=== PATIENT | female | born 1955 | race Caucasian/White ===

== ENCOUNTER 2019-02-22 13:16 | Outpatient (REF) | payer MEDICARE, SELFPAY ==
[2019-02-22 18:29] LABS: HCT 46.4 % (36.0-46.0); HGB 15.5 g/dL (12.0-15.5); Mean Corp. HGB Concentration 33.4 g/dL (32.0-36.0); Mean Corpuscular Hemoglobin 31.7 pg (27.0-33.0); Mean Corpuscular Volume 94.9 fL (80-95); Mean Platelet Volume 10.1 fL (8.0-11.0); Platelet Count 264 x1000/uL (130-400); RBC 4.89 m/cumm (4.00-5.20); RBC Distribution Width 12.8 % (11.7-14.6)
[2019-02-22 19:16] LABS: ALT 34 U/L (14-59); AST 18 U/L (15-37); Albumin 3.5 g/dL (3.4-5.0); Alkaline Phosphatase 94 U/L (46-116); Anion Gap 11.8 mmol/L (3-11); BUN 10 mg/dL (7-18); Bilirubin, Total 0.4 mg/dL (0.2-1.0); CO2 26.2 mmol/L (21.0-32.0); CREATININE 0.95 mg/dL (0.55-1.02); Calcium 8.8 mg/dL (8.5-10.1); Chloride 104 mmol/L (98-107); Estimated GFR 58.85 (mL/min/1.73m2); Glucose 86 mg/dL (70-100); Potassium 4.7 mmol/L (3.5-5.1); Sodium 142 mmol/L (136-145); TSH (W/Ref FT4) 4.94 uIU/mL (0.36-3.74)
== END 2019-02-22 13:36 ==
LOC: NCHCN 13:16
PROVIDERS: PCP Nurse Practitioner Family; Visit Provider Nurse Practitioner Family
DX: R10.2 Pelvic and perineal pain (principal); Z86.39 Personal history of other endocrine, nutritional and metabolic disease; R07.89 Other chest pain
CPT/HCPCS: 80053; 85027; 84439; 84443

== ENCOUNTER 2019-03-08 18:02 | Outpatient (REF) | payer MEDICARE, SELFPAY ==
--- NOTE | 2019-03-08 15:00 | PAPFT_PTH ---
PATIENT: Odalis Dennison LOC: [facility]#:[id number] AGE/SX: 64/F ROOM: RE03/08/[address]: Gila Hodge : 1955 BED: DIS: 03/08/2019 SPEC #: [id number] RECD: 03/09/19 12:59 STATUS: RICKY MARTINEZ #: [id number] TRINA: 03/08/19 15:[address]: Gila Hodge DEPT: [facility] Cytology RECD BY: Katerina Grubbs ENTERED: 03/09/19 12:59 SP TYPE: PAPFT OTHR DR: Lanette Rader Tissues: 1 - CX/ENDOCX FOR PAP SMEARS Procedures: PAP THIN PREP/UVM Screening HPV DNA PROBE Comments: [id number]
== END 2019-03-08 18:22 ==
LOC: NCHCN 18:02
PROVIDERS: PCP Nurse Practitioner Family; Visit Provider Nurse Practitioner Family
DX: Z12.4 Encounter for screening for malignant neoplasm of cervix (principal); Z11.51 Encounter for screening for human papillomavirus (HPV)
CPT/HCPCS: 88142; 87624

== ENCOUNTER 2019-06-13 12:04 | Outpatient (CLI) | payer MEDICARE, SELFPAY ==
[2019-06-13 13:53] LABS: Ferritin 158 ng/mL (8-252)
== END 2019-06-13 12:24 ==
PROVIDERS: PCP Nurse Practitioner Family; Visit Provider Nurse Practitioner
DX: M25.50 Pain in unspecified joint (principal)
CPT/HCPCS: 36415; 82728

== ENCOUNTER 2019-07-21 00:44 | Outpatient (CLI) | payer MEDICARE, SELFPAY ==
--- NOTE | 2019-07-21 08:49 | DI.NM_ITS ---
APPROVED REPORT Exam: Exercise Treadmill Patient Location: Out-Patient Room/Bed: Stress Nurse: Radha Hooper RN BMI: 41.96 Baseline Rhythm: Sinus Bradycardia Indications: Patient reports feeling intermittent palpitations about 1 year ago which have increased in frequency over time. In April she states she had an ER admission where Atrial Fibrillation was noted. Patient testing today for further risk stratification. Note: her father of a heart attack at age 53. Medical History Medical History: GERD Cardiac Medications: Eliquis, Diltiazam, Losartan, Aspirin. Allergies: No known drug allergies Cardiac Risk Factors: FHX of CAD, HTN, Smoking Previous Cardiac Procedures: None Pretest Chest Pain Characteristics: None Exercise History: Physically active Physical Disabilities: None Lung Sounds: Clear to auscultation Heart Sounds: Regular Stress Test Details Test: Exercise stress testing was performed using a Damon protocol. Rest Isotope: Tc-99m Sestamibi. Dose: 12.3 Date: 07/21/2019 Injection Time: 0830 Stress Isotope: Tc-99m Sestamibi. Dose: 38.7 Date: 07/21/2019 Injection Time: 1000 HR Max Heart Rate (APMHR): 154 bpm Resting HR Supine: 52 bpm Target HR (85% APMHR): 130 bpm Resting HR Standin bpm Max HR Achieved: 182 bpm % of APMHR: 118 HR response to stress: Patient went into Atrial Fibrillation during exercise with elevated heart rate s. BP Resting BP Supine: 170/90 mmHg Resting BP Standin/90 mmHg Max BP: 196/98 mmHg BP response to stress: Blood pressure hypertensive at baseline. Normal blood pressure response to str ess. ECG Resting ECG: Sinus Bradycardia ST Change: Normal Ectopy: none Stress ECG: Patient converted to Atrial , Sinus Tachycardia ST Change: Normal Arrhythmia: The patient went into atrial fibrillation at approximately 3 minutes 35 seconds of exe rcise. Recovery ECG: Atrial Fibrillation Recovery ST Change: Downward sloping St Segment depression at 8 minutes 39 seconds of recovery in dari ds II and AVF, that returned to baseline at approximately 10 of recovery. Patient to ER: 1025 Reason Why: At 9 minutes 30 seconds of recovery patient's heart rhythm was atrial fibrillation with h eart rate sustained in the 140's. Ship Manager, Dr. Stubbs, was notified, he recommended patient go t he the ER to be converted. Patient was taken to the ER at 1025 via wheelchair with LNA. Sulema Pruett RN, RN gave report to Saurav Kimball RN and Flaca RIVER at 1026. Clinical Reason for Termination: Dyspnea Stress Symptoms: Palpitations and cough Exercise duration: 5 min11 sec Highest Stage Achieved: Stage 3: 3.4 mph at 14% grade. Exercise capacity: 4.05 METs Functional Capacity: Average Capacity Stress ECG Conclusion 1. Patient exercised for 5 minutes 11 seconds (4 METS). Exercise was stopped due to dyspnea. 2. The patient went into atrial fibrillation at approximately 3 minutes of exercise. This abnormal r hythm continued through recovery. 3. The patient was transferred to the emergency room where a cardioversion was performed. 4. There is no evidence of ischemia on the ECG portion of this exam. Protocol Used: Damon Protocol Stress Test Summary STAGE Time (mins) Speed (mph) Grade (%) HR BP SYMPTOMS METS Supine 52 170/90 Standing 61 172/90 1 3 1.7 10 113 184/90 4.6 2 6 2.5 12 7 3 9 3.4 14 10.2 4 12 4.2 16 12.9 5 15 5.0 18 17.2 1 min recovery 164 196/98 3 min recovery 154 182/98 6 min recovery 119 180/98 145 148/100 MPI Conclusion Last ejection fraction was 60%. There were no wall motion abnormalities. No evidence of ischemia on the imaging portion of this exam. This represents a normal perfusion imaging study. Radiologist Interpretation Radiologist Interpretation by: Jose Maria Bolton MD Interpretation Date/Time: 07/21/2019 16:13:31
== END 2019-07-21 01:04 ==
PROVIDERS: PCP Nurse Practitioner Family; Visit Provider Nurse Practitioner Family
DX: R00.2 Palpitations (principal); I47.9 Paroxysmal tachycardia, unspecified; I48.0 Paroxysmal atrial fibrillation; I10 Essential (primary) hypertension; K21.9 Gastro-esophageal reflux disease without esophagitis; Z82.49 Family history of ischemic heart disease and other diseases of the circulatory system
CPT/HCPCS: 78452; 93016; 93018; 93017

== ENCOUNTER 2019-07-21 10:23 | Emergency (ER) | payer MEDICARE, SELFPAY ==
[2019-07-21] VITALS (30 sets, daily range): BP systolic 104–151; BP diastolic 56–110; PULSE 47–150; RESP 12–26; TEMP 36.5–36.8; O2SAT 90–96
--- NOTE | 2019-07-21 10:34 | W.ED.GENAD ---
Discharge Plan Disposition Patient Disposition: HOME Condition: Good Discharge Details Chief Complaint: Palpitatns Clinical Impression: Atrial flutter, Atrial flutter with rapid ventricular response Primary Care Provider: Gila Hodge ED Provider: Anmol Meredith Home Meds and New Rx's Prescriptions: No Action Eliquis 5 mg Tablet 5 mg PO BID RF: 0 diltiazem HCl 120 mg Capsule,Extended Release 24hr 120 mg PO DAILY RF: 0 losartan 100 mg Tablet 120 mg PO DAILY RF: 0 omeprazole 20 mg Tablet,Delayed Release (Dr/Ec) 20 mg PO DAILY RF: 0 aspirin [Aspir-81] 81 mg Tablet,Delayed Release (Dr/Ec) 162 mg PO DAILY RF: 0 omega-3 fatty acids [Fish Oil Concentrate] 1,000 mg Capsule 1,000 mg PO DAILY RF: 0 cyanocobalamin (vitamin B-12) [Vitamin B-12] 1,000 mcg Tablet Extended Release PO DAILY RF: 0 ropinirole [Requip XL] 2 mg Tablet Extended Release 24 Hr 1 mg PO DAILY RF: 0 Discharge Instructions Instructions: Atrial Flutter (ED) Additional Instructions: At this time your heart rate has notably improved. Please take your daily diltiazem at 3 PM this afternoon. Please continue taking your Eliquis as directed starting with your evening dose tonight. We will get a cardiology follow-up appointment for you. Please do not miss this. They will contact you for this appointment. If you notice any worsening of your symptoms, or any new symptoms such as vomiting, diarrhea, fever, chills, shortness of breath, chest pain, numbness, weakness, or fainting , please return immediately to the emergency department for reevaluation. Please follow up with your primary care provider as soon as possible for reassessment and reevaluation. As always, it was a pleasure participating in your medical care today. Referrals: Christian Stubbs MD [MD CONSULTING PHYSICIAN] - Gila Hodge [Primary Care Provider] - Medical Decision Making 64-year-old female with a past medical history of A. fib on diltiazem 120 mg daily, Eliquis, who presents for palpitations after stress test. While undergoing a nuclear stress test she developed A. fib with RVR with a heart rate of 148. She has no chest pain or other complaints whatsoever. She states that this is happened before. She has not yet taken her Cardizem. Currently her blood pressure is stable, we did attempt to Valsalva techniques utilizing the modified Valsalva technique. Unfortunately neither of these were successful. I do feel that patient truly needs her diltiazem. We will give 20 mg IV Cardizem, we have reached out to the [facility] complaint coordinator Dr Stubbs, he does agree with a trial of diltiazem, and if this fails then we can cardiovert electrically since we know the exact time that her symptoms started. 12:49 PM Laboratory work-up is returned, no electrolyte abnormalities, troponin normal, EKG normal, proBNP normal, TSH is elevated which is at baseline for the patient. Free T4 0.89. And this is baseline. She continues to demonstrate no chest pain, chest tightness, shortness of breath, arm neck or shoulder pain. She denies any other complaints. She continues to states that she feels great and has had no pain or chest distress whatsoever. Symptoms are inconsistent with ACS. The patient has remained in a normal heart rate since administration of the diltiazem. Repeat EKG does show evidence of rate controlled atrial flutter. Case was rediscussed with , and with her rate improvement with diltiazem there is no indication for electrical cardioversion. He agrees with the plan and recommends continuation of her home diltiazem, and close follow-up on an outpatient basis with cardiology. Patient will be discharged home at this time. Discussed red flags for which to return. Will schedule cardiology appointment. I have extensively reviewed the treatment plan and discharge instructions with the patient. I have addressed all patient concerns at this time. The patient was made aware of what symptoms to monitor for that would warrant a return to the emergency department. Discussed the plan with the patient, they demonstrate verbal understanding and agreement with our assessment and plan at this time. EKG 10: 28 Rate 147, there are components that do seem to show some P waves, particularly in lead II however he also appears to be notably less consistent P waves in the lateral leads. There does appear to be some rhythm irregularity, especially with her history of A. fib this is concerning for atrial fibrillation with a rapid ventricular response no evidence of STEMI. HPI General Date/Time Provider Initiated Documentation: 07/21/19 10:23. HPI Narrative: This is a 64-year-old female with a past medical history of A. fib on Eliquis, 120 mg of diltiazem, who presents today for evaluation of palpitations. The patient was undergoing a nuclear stress test today when she went into A. fib with RVR. Sites were elevated heart rate in the 140s to 150s she remained stable from a blood pressure standpoint. She was sent down to the ER by cardiology for further management. Currently aside for the feeling of palpitations the patient denies any other complaint or pain. She denies chest pain, chest tightness, shortness of breath, nausea vomiting or diarrhea. She denies any pleuritic chest pain or history of PE. She has been taking her Eliquis every day as directed, she has not taken today's dose, which is about 30 minutes delayed at this time. She has no other complaints at this time. No other modifying factors. She states that she has had episodes of A. fib before in the past but it always resolves on its own after 2 hours. Related Data Home Medications Medication Instructions Recorded Confirmed apixaban [Eliquis] 5 mg PO BID 07/21/19 07/21/19 aspirin [Aspir-81] 162 mg PO DAILY 07/21/19 07/21/19 cyanocobalamin (vitamin B-12) mcg PO DAILY 07/21/19 [Vitamin B-12] diltiazem HCl 120 mg PO DAILY 07/21/19 07/21/19 losartan 120 mg PO DAILY 07/21/19 07/21/19 omega-3 fatty acids [Fish Oil 1,000 mg PO DAILY 07/21/19 07/21/19 Concentrate] omeprazole 20 mg PO DAILY 07/21/19 07/21/19 ropinirole [Requip XL] 1 mg PO DAILY 07/21/19 07/21/19 Allergies Allergy/AdvReac Type Severity Reaction Status Date / Time No Known Allergies Allergy Unverified 07/21/19 10:37 Review of Systems All systems reviewed & are unremarkable except as noted in HPI and below PFSH Social History Smoking/Tobacco Use Status: Current every day Tobacco Type: cigarettes Alcohol Intake: current Alcohol Intake frequency: a few times a week Drug use: Occasionally Substance use type: marijuana Details: cutting back on cigarettes - less than 1ppd from 2.5ppd weekly marijuana Do you feel safe at home: Yes Do you feel safe in your relationship?: Yes Exam Narrative Exam Narrative: 1.Const: Well-nourished, Well-developed, appearing stated age 2.Eyes: PERRL, no conjunctival injection, and symmetrical lids. 3.ENT: Atraumatic external nose and ears. Moist MM. Neck: Symmetric, trachea midline, No thyromegaly. 4.CVS: +S1/S2, No murmurs or gallops. Peripheral pulses 2+ and equal in all extremities. Brisk capillary refill in all extremities. 5.RESP: Unlabored respiratory effort. Clear to auscultation bilaterally. No wheezes rales or rhonchi 6.GI: Soft, Nontender/Nondistended, No hepatosplenomegaly. No guarding or rebound. 7.MSK: Normocephalic/Atraumatic, Extremities w/o deformity or ttp No cyanosis or clubbing, Normal movement of all extremities, no calf tenderness, no pitting edema. 8.Skin: Warm, Dry. No rashes or lesions. 9.Neuro: gold prospector II-XII grossly intact. Sensation grossly intact, no focal neurologic deficits. 10.Psych: (AAO) x3. Appropriate mood and affect
[2019-07-21] MEDS: Normal Saline 500 ML IV (10:40)
[2019-07-21] MEDS: dilTIAZem 25 MG/5 ML VIAL 20 MG IVP (10:45)
[2019-07-21] MEDS: Apixaban 5 MG TAB PO (11:27)
[2019-07-21 11:44] LABS: Abs Immature Grans 0.02 k/cumm (0.0-0.09); Absolute Basophil Count 0.02 k/cumm (0.0-0.2); Absolute Eosinophil Count 0.36 k/cumm (0.0-0.7); Absolute Lymphocyte Count 1.72 k/cumm (1.2-3.4); Absolute Monocyte Count 0.56 k/cumm (0.11-0.7); Absolute Neutrophil Count 4.82 k/cumm (1.2-6.7); Basophils % 0.3; Eosinophils % 4.8; HCT 41.6 % (36.0-46.0); HGB 13.9 g/dL (12.0-15.5); Immature Grans % 0.3 %; Lymphocytes % 22.9; Mean Corp. HGB Concentration 33.4 g/dL (32.0-36.0); Mean Corpuscular Hemoglobin 31.4 pg (27.0-33.0); Mean Corpuscular Volume 93.9 fL (80-95); Mean Platelet Volume 9.6 fL (8.0-11.0); Monocytes % 7.5; Neutrophils % 64.2; Platelet Count 202 x1000/uL (130-400); RBC 4.43 m/cumm (4.00-5.20); RBC Distribution Width 12.7 % (11.7-14.6)
[2019-07-21 12:03] LABS: PTT Activated 24.7 sec (21.0-31.4); Prothrombin Time 10.1 sec (9.3-11.0)
[2019-07-21 12:07] LABS: ALT 40 U/L (14-59); AST 18 U/L (15-37); Albumin 3.2 g/dL (3.4-5.0); Alkaline Phosphatase 91 U/L (46-116); Anion Gap 7.7 mmol/L (3-11); BUN 16 mg/dL (7-18); Bilirubin, Total 0.5 mg/dL (0.2-1.0); CO2 28.3 mmol/L (21.0-32.0); CREATININE 0.77 mg/dL (0.55-1.02); Calcium 8.5 mg/dL (8.5-10.1); Chloride 107 mmol/L (98-107); Glucose 95 mg/dL (74-106); NT-proBNP 468 pg/mL (<300); Potassium 4.2 mmol/L (3.5-5.1); Sodium 143 mmol/L (136-145); TSH (W/Ref FT4) 5.26 uIU/mL (0.36-3.74); Total Protein 6.5 g/dL (6.4-8.2); Troponin I < 0.05 ng/Ml (<0.06)
[2019-07-21 12:24] LABS: FREE T4 0.89 ng/dL (0.76-1.46)
== END 2019-07-21 13:06 | disposition home or self-care (01) ==
PROVIDERS: Emergency Provider Student in an Organized Health Care Education/Training Program; PCP Nurse Practitioner Family
DX: I48.91 Unspecified atrial fibrillation (principal); I48.92 Unspecified atrial flutter
CPT/HCPCS: 80053; 93005; 96361; 96374; 99285; 99291; 83880; 84439; 84443; 84484; 85025; 85610; 85730; 93010; 99284

== ENCOUNTER 2019-08-02 01:28 | Outpatient (CLI) | payer MEDICARE, SELFPAY ==
--- NOTE | 2019-08-02 10:30 | DI.US_ITS ---
APPROVED REPORT EXAM: Comprehensive 2D, Doppler, and color-flow Echocardiogram Patient Location: Out-Patient Rn Primary Care: Flakita Almageur RDCS (AE) Rhythm: Bradycardia Indications: tachycardia, paroxysmal, i47.9, paroxysmal atrial fibrillation i48.0. Conclusion Left Ventricle : The left ventricle is normal size. The left ventricular systolic function is normal. The left ventricular ejection fraction is within the normal range. Mild Asymmetric septal thickening . There is normal LV segmental wall motion. The left ventricular diastolic function is normal. LVEF i s estimated to be 70%. Right Ventricle : Right ventricle is mildly dilated. The right ventricular systolic function appears normal. Atria : Left atrium is mildly dilated. Right atrium is mildly dilated. Aortic Valve : Aortic valve is probably trileaflet. There is no aortic valvular stenosis or regurgita tion. Mitral Valve : Mitral valve leaflets are mildly thickened. Mild mitral regurgitation. No evidence of mitral valve stenosis. Tricuspid Valve : Moderate tricuspid regurgitation. Tricuspid valve is not well visualized. Great Vessels : The aortic root is normal in size. The IVC is dilated in size, but appears to collaps e >50% with inspiration. Estimated RVSP is 34-42 mmHg. There is no prior echocardiogram available for comparison. Wall motion Left Ventricle The left ventricle is normal size. The left ventricular systolic function is normal. The left ventric ular ejection fraction is within the normal range. Mild Asymmetric septal thickening. There is normal LV segmental wall motion. The left ventricular diastolic function is normal. LVEF is estimated to be 70%. Right Ventricle Right ventricle is mildly dilated. The right ventricular systolic function appears normal. Atria Left atrium is mildly dilated. Right atrium is mildly dilated. Aortic Valve Aortic valve is probably trileaflet. There is no aortic valvular stenosis. No aortic regurgitation is present. Mitral Valve Mitral valve leaflets are mildly thickened. No evidence of mitral valve stenosis. Mild mitral regurgi tation. Tricuspid Valve Tricuspid valve is not well visualized. Moderate tricuspid regurgitation. Pulmonic Valve Pulmonic valve is not well visualized. Great Vessels The aortic root is normal in size. The ascending aorta is dilated (4.2cm). The IVC is dilated in size , but appears to collapse >50% with inspiration. Estimated RVSP is 34-42 mmHg. Pericardium Prominent anterior epicardial fat pad is present. 2D Dimensions IVSd 1.20 cm F: 0.6-1.0 LV EDV A2C 72.1 mL PWd 0.80 cm F: 0.6 - 1.0 LV EDV A4C 72.4 mL LVDd 5.00 cm F: 3.8 - 5.2 LA Volume Index Biplane 42.0 mL/m2 LVDs 2.85 cm F: 2.2 - 3.5 LA Area A4C 25.28 cm2 Aortic Root 3.15 cm F: 2.7 - 3.3 LA Area A2C 25.75 cm2 RVID Base (AP4) 4.50 cm (M/F) 2.5-4.1 EF AP4 71.3 % RA Area A4C 21.92 cm2 EF AP2 70.7 % LVOT 2.10 cm (M/F) 1.5-2.5 EF BP 73.0 % Ascending Aorta 4.26 cm F: 2.3 - 3.1 IVC 2.16 cm LVEF (Teich) 73.7 % TAPSE 2.58 cm (M/F) <1.7 LVEF (Rizo's) 73.01 % F: 54 - 74 LV Volume 53.96 mL F: 46 - 106 LV Volume Index 24.52 mL/m2 F: 29 - 61 FS 42.85 % LV Diastology MV E' medial 0.057 (>0.07 m/s) E/A Ratio 1.4 LV E/e MED 12.10 (<14) PV S/D Ratio 1.66 MV E' lateral 0.086 (>0.1 m/s) A-A Duration 113.27 msec LV E/e LAT 8.05 (<14) TR Peak Velocity 2.93 m/s Pulm Vein s 0.69 m/s Pulm Vein d 0.42 m/s Pulm Vein a 0.30 m/s LA vol/ BSA A2C s A-L 41.0 mL/m2 LA vol/ BSA A4C s A-L 41.3 mL/m2 Aortic Valve LVOT Area 3.57 cm2 AoV Area Vmax 2.68 cm2 LVOT Vmax 1.30 m/s AoV Area/ BSA (Vmax) 1.22 cm2/m2 LVOT Mean Jeffery. 0.94 m/s MARQUISE Mean Jeffery. 2.81 cm2 LVOT Peak Gr. 6.8 mmHg MARQUISE Mean Jeffery. Index 1.28 cm2/m2 LVOT Mean Gr. 3.9 mmHg LVOT VTI 0.315 m AoV Vmax 1.74 (0.5-1.3 m/s) AoV Mean Jeffery. 1.19 m/s AoV Peak Grad 12.0 mmHg LVOT SV 112.51 mL AoV Mean Grad 6.3 (<5 mmHg) AoV VTI 0.418 (0.18-0.25 m) AoV Area VTI 2.69 (2.5-4.5 cm2) AoV Area/ BSA (VTI) 1.22 cm/m2 Mitral Valve MV E Max Jeffery. 0.69 (0.4-1.3 m/s) MVA VTI 6.38 (4.0-6.0 cm2) MV A Velocity 0.50 (0.4-1.3 m/s) PISA MR 1.66 cm2 E/A Ratio 1.37 ERO A 0.10 cm2 MV Decel. Time 231 (160-240 msec) MV Regurg Volume 20.04 mL MV PHT 67 msec MV RF 15.12 % MVA PHT 3.25 cm2 PISA Radius 0.51 cm PV Peak Velocity 0.99 (0.5-1.5 m/s) RVOT Peak Gr. 2.69 mmHg RVOT Peak Jeffery. 0.82 m/s RVOT Mean Gr. 1.60 mmHg RVOT VTI 0.167 m Tricuspid Valve TR P. Gradient 34.4 mmHg TV Regurg Vmax 2.93 m/s RAP Estimate 8.00 mmHg RVSP 42.4 mmHg
== END 2019-08-02 01:48 ==
PROVIDERS: PCP Nurse Practitioner Family; Visit Provider Family Medicine
DX: I48.0 Paroxysmal atrial fibrillation (principal); I47.9 Paroxysmal tachycardia, unspecified; I10 Essential (primary) hypertension; I51.7 Cardiomegaly; I25.10 Atherosclerotic heart disease of native coronary artery without angina pectoris; I48.92 Unspecified atrial flutter; Z79.01 Long term (current) use of anticoagulants; Z79.899 Other long term (current) drug therapy
CPT/HCPCS: 93306; 99204; 99215

== ENCOUNTER 2019-08-02 08:36 | Outpatient (CLI) | payer MEDICARE, OTHER, SELFPAY | END 2019-08-02 08:56 | PROVIDERS: PCP Nurse Practitioner Family; Visit Provider Internal Medicine Cardiovascular Disease | DX: I48.0 Paroxysmal atrial fibrillation (principal); I10 Essential (primary) hypertension | CPT/HCPCS: 93005; 93010 ==

== ENCOUNTER 2019-08-10 02:40 | Outpatient (CLI) | payer MEDICARE, SELFPAY | END 2019-08-10 03:00 | PROVIDERS: PCP Nurse Practitioner Family; Visit Provider Internal Medicine Cardiovascular Disease | DX: R00.2 Palpitations (principal); I48.0 Paroxysmal atrial fibrillation; I49.1 Atrial premature depolarization | CPT/HCPCS: 93225 ==

== ENCOUNTER 2019-08-12 16:02 | Outpatient (CLI) | payer MEDICARE, SELFPAY ==
--- NOTE | 2019-08-15 09:08 | W.HOLTRPT ---
Date of service: 08/15/19 Time of Service: 09:08 Holter Monitor Report Holter Monitor Note: The patient was monitored for 48 hours and 12 minutes. Predominant rhythm was sinus rhythm. There was paroxysmal atrial flutter/fibrillation which lasted for 14 hours and 2 minutes Average heart rate when in atrial fibrillation was 100 to110 bpm. Average heart rate when in sinus was 60 There were very rare ventricular ectopic beats. There are moderately frequent atrial premature beats Sinus bradycardia was present, minimum heart rate 42. Longest pause was 2 seconds
== END 2019-08-12 16:22 ==
PROVIDERS: PCP Nurse Practitioner Family; Visit Provider Internal Medicine Cardiovascular Disease
DX: I48.0 Paroxysmal atrial fibrillation (principal); I49.1 Atrial premature depolarization; R00.2 Palpitations
CPT/HCPCS: 93226

== ENCOUNTER 2019-08-15 09:08 | Outpatient (CLI) | payer MEDICARE, SELFPAY | END 2019-08-15 09:28 | PROVIDERS: PCP Nurse Practitioner Family; Referring Provider Nurse Practitioner Family; Visit Provider Internal Medicine Cardiovascular Disease | DX: R00.2 Palpitations (principal); I48.0 Paroxysmal atrial fibrillation; I49.1 Atrial premature depolarization | CPT/HCPCS: 93227 ==

== ENCOUNTER → 2020-02-03 10:43 | Outpatient (BNVA) | payer MEDICARE, SELFPAY | PROVIDERS: PCP Nurse Practitioner Family; Referring Provider Nurse Practitioner Family; Visit Provider Internal Medicine Cardiovascular Disease | DX: I48.0 Paroxysmal atrial fibrillation (principal); Z79.01 Long term (current) use of anticoagulants; I10 Essential (primary) hypertension | CPT/HCPCS: 99214 ==

== ENCOUNTER 2020-08-08 12:24 | Outpatient (REF) | payer OTHER, SELFPAY ==
[2020-08-08 20:36] LABS: Anion Gap 9.8 mmol/L (3-11); BUN 16 mg/dL (7-18); CO2 27.2 mmol/L (21.0-32.0); CREATININE 0.9 mg/dL (0.55-1.02); Calculated LDL 143 mg/dL (<100); Chloride 103 mmol/L (98-107); Cholesterol 222 mg/dL (<200); Glucose 98 mg/dL (74-106); HDL Cholesterol 61 mg/dL (40-60); Potassium 4.5 mmol/L (3.5-5.1); Sodium 140 mmol/L (136-145); TSH (W/Ref FT4) 4.57 uIU/mL (0.36-3.74); Triglyceride 94 mg/dL (<150)
[2020-08-08 21:04] LABS: FREE T4 0.89 ng/dL (0.76-1.46)
== END 2020-08-08 12:25 | disposition home or self-care (01) ==
LOC: NCHCN 12:24
PROVIDERS: PCP Nurse Practitioner Family; Visit Provider Nurse Practitioner Family
DX: I10 Essential (primary) hypertension (principal); E78.5 Hyperlipidemia, unspecified; Z86.39 Personal history of other endocrine, nutritional and metabolic disease
CPT/HCPCS: 80048; 80061; 84439; 84443

== ENCOUNTER → 2020-08-17 10:45 | Outpatient (BNVA) | payer OTHER, SELFPAY | PROVIDERS: PCP Nurse Practitioner Family; Referring Provider Nurse Practitioner Family; Visit Provider Internal Medicine Cardiovascular Disease | DX: I48.0 Paroxysmal atrial fibrillation (principal); I10 Essential (primary) hypertension | CPT/HCPCS: 99214; 99213 ==

== ENCOUNTER 2020-10-26 03:54 | Outpatient (CLI) | payer OTHER, SELFPAY ==
--- NOTE | 2020-10-26 11:23 | DI.MAMMO_ITS ---
Exam(s) MAMMO SCREENING EXAM: MAMMO SCREENING CLINICAL HISTORY: SCREENING, PREVENTIVE HEALTH CARE,Z00.00 TECHNIQUE: Bilateral full field digital CC and MLO mammographic images were obtained with 3D tomosyn thesis and utilizing computer aided detection (CAD). COMPARISON: Available for comparison. FINDINGS: Masses/Architectural Distortion: None seen. Microcalcifications: No suspicious pleomorphic-type are seen. Skin Thickening/Nipple Retraction: None. IMPRESSION: 1. No significant interval change with no specific features of malignancy noted. 2. Unless there is more urgent need, screening mammography is recommended, as per [place] [employer] guidelines. BI-RADS Category 1 - Negative Breast Density - Category A - Almost entirely fatty Breast density category C or D implies that the patient has dense breast tissue. Dense breast tissue is very common and is not abnormal but dense breast tissue can make it harder to find cancer on a ma mmogram. Also, dense breast tissue may increase their breast cancer risk. This information about the result of the mammogram report was provided to the patient to raise their awareness. Use this report when you speak with the patient about their risks for breast cancer, which includes their family hist ory. At that time, you may recommend for more screening tests (Ultrasound or MRI) as they might be us eful based on their risk. A negative radiographic report should not delay biopsy if a dominant or clinically suspicious mass is present. Up to ten percent of cancers are not identified on mammography. A negative report may reinforce clinical impression. Adenosis and dense breasts may obscure an underlying neoplasm. False positive reports average 6 to 10%. Patient will receive a letter notifying them of these results.
== END 2020-10-26 04:14 ==
PROVIDERS: PCP Nurse Practitioner Family; Visit Provider Nurse Practitioner Family
DX: Z12.31 Encounter for screening mammogram for malignant neoplasm of breast (principal)
CPT/HCPCS: 77063; 77067

== ENCOUNTER 2020-10-30 09:52 | Outpatient (CLI) | payer OTHER, SELFPAY ==
--- NOTE | 2020-10-30 09:30 | DI.RAD_ITS ---
Exam(s) XR KNEE RT 3V AP,LAT,FRANCISCA EXAM: XR KNEE RT 3V AP,LAT,FRANCISCA CLINICAL HISTORY: right knee pain. TECHNIQUE: 2D digital imaging was performed. COMPARISON: No exams were available for comparison FINDINGS: There are moderate degenerative changes in the right knee with joint space narrowing and periarticula r spurring most marked in the medial femoral tibial joint. The bones are intact and normally mineral ized. The soft tissues are unremarkable. IMPRESSION: Moderate degenerative changes of the right knee. DATA REPOSITORY: RADIATION DOSE DELIVERED:
== END 2020-10-30 09:53 | disposition home or self-care (01) ==
LOC: DIORS 09:52
PROVIDERS: PCP Nurse Practitioner Family; Referring Provider Nurse Practitioner Family; Visit Provider Student in an Organized Health Care Education/Training Program
DX: M17.11 Unilateral primary osteoarthritis, right knee (principal); M25.561 Pain in right knee
CPT/HCPCS: 73562; 99203; 99213

== ENCOUNTER → 2021-09-09 11:46 | Outpatient (BNVA) | payer OTHER, SELFPAY | PROVIDERS: PCP Nurse Practitioner Family; Visit Provider Internal Medicine Cardiovascular Disease | DX: I48.0 Paroxysmal atrial fibrillation (principal); I10 Essential (primary) hypertension | CPT/HCPCS: 99213 ==

== ENCOUNTER 2021-09-24 17:43 | Outpatient (REF) | payer OTHER, SELFPAY ==
[2021-09-24 17:19] LABS: Anion Gap 10.8 mmol/L (3-11); BUN 14 mg/dL (7-18); CO2 27.2 mmol/L (21.0-32.0); Calcium 8.7 mg/dL (8.5-10.1); Chloride 102 mmol/L (98-107); Estimated GFR 55.14 (mL/min/1.73m2); Glucose 100 mg/dL (74-106); Potassium 4.1 mmol/L (3.5-5.1); Sodium 140 mmol/L (136-145); TSH (W/Ref FT4) 3.87 uIU/mL (0.36-3.74)
[2021-09-24 17:42] LABS: FREE T4 0.91 ng/dL (0.76-1.46)
== END 2021-09-24 17:44 | disposition home or self-care (01) ==
LOC: NCHCN 17:43
PROVIDERS: PCP Nurse Practitioner Family; Visit Provider Nurse Practitioner Family
DX: Z86.39 Personal history of other endocrine, nutritional and metabolic disease (principal)
CPT/HCPCS: 80048; 84439; 84443

== ENCOUNTER 2022-09-08 09:01 | Outpatient (CLI) | payer SELFPAY | END 2022-09-08 09:02 | disposition home or self-care (01) | LOC: DI.CARD 09:01 | PROVIDERS: PCP Nurse Practitioner Family; Visit Provider Internal Medicine Cardiovascular Disease | CPT/HCPCS: 93010 ==

== ENCOUNTER 2023-01-21 11:57 | Outpatient (REF) | payer MEDICARE, SELFPAY ==
[2023-01-21 14:55] LABS: Abs Immature Grans 0.04 10^3/uL (0.0-0.06); Absolute Basophil Count 0.05 10^3/uL (0.0-0.2); Absolute Eosinophil Count 0.36 10^3/uL (0.0-0.7); Absolute Lymphocyte Count 2.44 10^3/uL (1.2-3.4); Absolute Monocyte Count 0.66 10^3/uL (0.1-0.8); Absolute Neutrophil Count 4.69 10^3/uL (1.2-6.7); Basophils % 0.6; Eosinophils % 4.4; HCT 42.5 % (36.0-46.0); HGB 14.1 g/dL (11.2-15.7); Immature Grans % 0.5; Lymphocytes % 29.6; MCH 31.5 pg (27.0-33.0); MCHC 33.2 % (32.0-36.0); MCV 95 fL (80-95); MPV 10.3 fL (8.0-11.0); Neutrophils % 56.9; Platelet Count 238 10^3/uL (130-400); RBC 4.48 10^6/uL (3.93-5.22); RDW 12.4 % (11.7-14.6); RDW-SD 42.9 fL; WBC 8.24 10^3/uL (4.4-10.8)
[2023-01-21 15:49] LABS: Iron 118 ug/dL (50-170); Total Iron Binding Capacity 352 ug/dL (250-450); Transferrin Sat 34 % (15-50)
[2023-01-21 16:05] LABS: ALT 67 U/L (14-59); AST 36 U/L (15-37); Albumin 3.5 g/dL (3.4-5.0); Alkaline Phosphatase 92 U/L (46-116); Anion Gap 7.3 mmol/L (3-11); BUN 18 mg/dL (7-18); Bilirubin, Total 0.6 mg/dL (0.2-1.0); CO2 29.7 mmol/L (21.0-32.0); CREATININE 1.2 mg/dL (0.55-1.02); Calculated LDL 159 mg/dL (<100); Chloride 105 mmol/L (98-107); Cholesterol 238 mg/dL (<200); Ferritin 171 ng/mL (8-252); Glucose 110 mg/dL (74-106); HDL Cholesterol 60 mg/dL (40-60); Potassium 4.2 mmol/L (3.5-5.1); Sodium 142 mmol/L (136-145); Total Protein 6.9 g/dL (6.4-8.2); Triglyceride 99 mg/dL (<150)
== END 2023-01-21 11:58 | disposition home or self-care (01) ==
LOC: NCHCN 11:57
PROVIDERS: PCP Nurse Practitioner Family; Visit Provider Nurse Practitioner Family
DX: I10 Essential (primary) hypertension (principal); R25.2 Cramp and spasm; R53.83 Other fatigue
CPT/HCPCS: 80053; 80061; 82728; 83540; 83550; 83735; 85025

== ENCOUNTER 2023-01-30 08:41 | Outpatient (CLI) | payer MEDICARE, SELFPAY ==
--- NOTE | 2023-01-30 08:45 | RT.EKG_ITS ---
APPROVED REPORT Exam: Resting ECG Reason for Exam: 1 year follow up Patient Location: O HR:50 bpm ECG Measurements Heart Rate 50 AXIS ND 158 P -30 QRSd 97 QRS 5 QT 418 T 44 QTc 382 Conclusion Sinus rhythm...normal P axis, V-rate 50- 99 Low voltage, precordial leads...precordial leads <1.0mV LVH with secondary repolarization abnormality...multi-LVH criteria, abnrm ST-T
== END 2023-01-30 08:42 | disposition home or self-care (01) ==
LOC: DI.CARD 08:51
PROVIDERS: PCP Nurse Practitioner Family; Referring Provider Nurse Practitioner Family; Visit Provider Internal Medicine Cardiovascular Disease
DX: I10 Essential (primary) hypertension (principal); I48.0 Paroxysmal atrial fibrillation
CPT/HCPCS: 93010

== ENCOUNTER → 2023-01-30 08:41 | Outpatient (BNVA) | payer MEDICARE, SELFPAY | PROVIDERS: PCP Nurse Practitioner Family; Referring Provider Nurse Practitioner Family; Visit Provider Internal Medicine Cardiovascular Disease | DX: I48.0 Paroxysmal atrial fibrillation (principal); I10 Essential (primary) hypertension | CPT/HCPCS: 93005; 99213 ==

== ENCOUNTER 2023-01-30 09:36 | Outpatient (CLI) | payer MEDICARE, SELFPAY | END 2023-01-30 09:37 | disposition home or self-care (01) | LOC: CARDOPNVT 09:36 | PROVIDERS: PCP Nurse Practitioner Family; Visit Provider Internal Medicine Cardiovascular Disease | DX: I48.0 Paroxysmal atrial fibrillation (principal) | CPT/HCPCS: 93270; 99214 ==

== ENCOUNTER 2023-03-06 07:13 | Outpatient (CLI) | payer MEDICARE, SELFPAY ==
--- NOTE | 2023-03-06 08:46 | W.CARDEVENT ---
Date of service: 03/06/23 Time of Service: 08:46 Cardiac Event Recorder Referring Provider:: Ezra Nice Indications:: Palpitations, atrial fibrillation Cardiac Event Note: This is a cardiac event recorder. Patient was monitored for approximately 10 days. Predominant rhythm was sinus with an average heart rate of 70 There were multiple episodes of paroxysmal atrial fibrillation/flutter There were multiple sinus pauses. Not all of these occurred at night day ranged in duration from 3.4 to 9 seconds Patient was referred for permanent pacemaker implantation which was performed on February 09
== END 2023-03-06 07:14 | disposition home or self-care (01) ==
LOC: CARDOPNVT 07:13
PROVIDERS: PCP Nurse Practitioner Family; Visit Provider Internal Medicine Cardiovascular Disease
DX: R00.2 Palpitations (principal); I48.0 Paroxysmal atrial fibrillation; I48.92 Unspecified atrial flutter; I49.8 Other specified cardiac arrhythmias
CPT/HCPCS: 93272

== ENCOUNTER → 2023-03-10 08:35 | Outpatient (BNVA) | payer MEDICARE, SELFPAY | PROVIDERS: PCP Nurse Practitioner Family; Referring Provider Nurse Practitioner Family; Visit Provider Internal Medicine Cardiovascular Disease | DX: I48.0 Paroxysmal atrial fibrillation (principal); Z95.0 Presence of cardiac pacemaker; I10 Essential (primary) hypertension | CPT/HCPCS: 99214 ==

== ENCOUNTER → 2023-07-07 09:03 | Outpatient (BNVA) | payer MEDICARE, SELFPAY | PROVIDERS: PCP Nurse Practitioner Family; Referring Provider Nurse Practitioner Family; Visit Provider Internal Medicine Interventional Cardiology | DX: I48.0 Paroxysmal atrial fibrillation (principal); Z95.0 Presence of cardiac pacemaker | CPT/HCPCS: 99213 ==

== ENCOUNTER 2023-07-13 15:04 | Outpatient (REF) | payer MEDICARE, SELFPAY ==
[2023-07-13 16:08] LABS: ALT 59 U/L (14-59); AST 35 U/L (15-37); Albumin 3.4 g/dL (3.4-5.0); Alkaline Phosphatase 83 U/L (46-116); Anion Gap 8.8 mmol/L (3-11); BUN 20 mg/dL (7-18); Bilirubin, Total 0.6 mg/dL (0.2-1.0); CO2 26.2 mmol/L (21.0-32.0); CREATININE 1.1 mg/dL (0.55-1.02); Calcium 9.3 mg/dL (8.5-10.1); Calculated LDL 149 mg/dL (<100); Chloride 102 mmol/L (98-107); Cholesterol 234 mg/dL (<200); Estimated GFR 54.06 (mL/min/1.73m2); Glucose 110 mg/dL (74-106); HDL Cholesterol 52 mg/dL (40-60); Potassium 4.2 mmol/L (3.5-5.1); Sodium 137 mmol/L (136-145); Total Protein 7.6 g/dL (6.4-8.2); Triglyceride 169 mg/dL (<150)
== END 2023-07-13 15:05 | disposition home or self-care (01) ==
LOC: NCHCN 15:04
PROVIDERS: PCP Nurse Practitioner Family; Visit Provider Nurse Practitioner Family
DX: I10 Essential (primary) hypertension (principal); E78.5 Hyperlipidemia, unspecified
CPT/HCPCS: 80053; 80061

== ENCOUNTER → 2023-07-15 01:44 | Outpatient (CLI) | payer MEDICARE, SELFPAY ==
--- NOTE | 2023-07-15 | DI.RAD_ITS ---
Exam(s) XR CHEST 2V PA LATERAL EXAM: XR CHEST 2V PA LATERAL CLINICAL HISTORY: DYSPNEA ON EXERTION,R06.09. TECHNIQUE: 2D digital imaging was performed. COMPARISON: No exams were available for comparison FINDINGS: 2 views: There is a bipolar left subclavian pacemaker with lead tips in RV and right ventricle Heart size is upper normal. The mediastinum is not widened. Mild pulmonary venous hypertension pattern but no airspace pulmonary edema. There are no Manuel B li ketan. No pleural effusions. No pneumothorax. No fractures. IMPRESSION: Cardiac pacemaker. Mild pulmonary venous hypertension pattern. No airspace pulmonary edema and no p leural effusions. DATA REPOSITORY: RADIATION DOSE DELIVERED:
== END ==
PROVIDERS: PCP Nurse Practitioner Family; Visit Provider Nurse Practitioner Family
DX: R06.09 Other forms of dyspnea (principal); Z95.0 Presence of cardiac pacemaker
CPT/HCPCS: 71046

== ENCOUNTER → 2023-10-22 08:57 | Outpatient (BNVA) | payer MEDICARE, SELFPAY | PROVIDERS: PCP Nurse Practitioner Family; Referring Provider Nurse Practitioner Family; Visit Provider Physical Therapy Assistant | DX: Z12.11 Encounter for screening for malignant neoplasm of colon (principal); Z80.0 Family history of malignant neoplasm of digestive organs ==

== ENCOUNTER 2023-12-21 03:12 | Outpatient (CLI) | payer MEDICARE, SELFPAY ==
[2023-12-21] MEDS: Levalbuterol HFA 15 GM INH 4 PUFF IH (14:39)
[2023-12-21] MEDS: Inhaler, Assist Device 1 EACH MC (14:39)
--- NOTE | 2024-01-04 15:47 | W.PFT ---
Date of service: 12/21/23 Time of Service: 13:01 Pulmonary Function Test Result Requesting Provider Lili fletcher Indications: Dyspnea Interpretation Spirometry: Normal Lung Volumes: Normal Diffusion Capacity: Normal Impression Normal spirometry, lung volumes and diffusion. Normal flow volume loop. Clinical Correlation therefore is recommended.
== END 2023-12-21 03:13 | disposition home or self-care (01) ==
LOC: RT 03:13
PROVIDERS: Visit Provider Nurse Practitioner Family
DX: R06.09 Other forms of dyspnea (principal)
CPT/HCPCS: 00123; 94060; 94726; 94729

== ENCOUNTER → 2024-02-01 11:11 | Outpatient (BNVA) | payer MEDICARE, SELFPAY | PROVIDERS: Visit Provider Internal Medicine Cardiovascular Disease | DX: Z95.0 Presence of cardiac pacemaker (principal); I48.0 Paroxysmal atrial fibrillation | CPT/HCPCS: 99213 ==

== ENCOUNTER 2024-11-16 02:08 | Outpatient (CLI) | payer MEDICARE, SELFPAY ==
--- NOTE | 2024-11-16 12:30 | DI.MAMMO_ITS ---
Exam(s) MAMMO SCREENING EXAM: MAMMO SCREENING CLINICAL HISTORY: Screening, Z12.31 TECHNIQUE: Bilateral full field digital CC and MLO mammographic images were obtained with 3D tomosyn thesis and utilizing computer aided detection (CAD). COMPARISON: Available for comparison. FINDINGS: Masses/Architectural Distortion: No suspicious masses or areas of architectural distortion are presen t. Microcalcifications: No suspicious pleomorphic-type are seen. Skin Thickening/Nipple Retraction: None. IMPRESSION: 1. No significant interval change with no specific features of malignancy noted. 2. Unless there is more urgent need, screening mammography is recommended, as per [place] [employer] guidelines. BI-RADS Category 1 - Negative Breast Density - Category A - The breast are almost entirely fatty. Breast density Category C or D implies that the patient has dense breast tissue. Dense breast tissue can make it harder to find cancer on a mammogram. Dense breast tissue is also associated with an incr eased risk of breast cancer. This information about the result of the mammogram report was provided to the patient to raise their awareness. Use this report when you speak with the patient about their risks for breast cancer, which includes their family history. At that time, you may recommend additional screening tests (Ultrasoun d or MRI) as these tests may add significant information. A negative radiographic report should not delay biopsy if a dominant or clinically suspicious mass is present. Up to ten percent of cancers are not identified on mammography. A negative report may reinforce clinical impression. Adenosis and dense breasts may obscure an underlying neoplasm. False positive reports average 6 to 10%. Patient will receive a letter notifying them of these results.
== END 2024-11-16 02:28 ==
LOC: DI 02:08
PROVIDERS: Visit Provider Nurse Practitioner Family
DX: Z12.31 Encounter for screening mammogram for malignant neoplasm of breast (principal); R92.313 Mammographic fatty tissue density, bilateral breasts
CPT/HCPCS: 77063; 77067

== ENCOUNTER 2024-11-16 11:49 | Outpatient (CLI) | payer MEDICARE, SELFPAY ==
[2024-11-16 12:46] LABS: Hemoglobin A1C 5.7 % (<5.7)
[2024-11-16 13:33] LABS: ALT 48 U/L (14-59); AST 58 U/L (15-37); Albumin 3.4 g/dL (3.4-5.0); Alkaline Phosphatase 89 U/L (46-116); Anion Gap 9.7 mmol/L (3-11); BUN 21 mg/dL (7-18); Bilirubin, Total 0.7 mg/dL (0.2-1.0); CO2 27.3 mmol/L (21.0-32.0); CREATININE 1.3 mg/dL (0.55-1.02); Calcium 9.1 mg/dL (8.5-10.1); Calculated LDL 93 mg/dL (<100); Chloride 102 mmol/L (98-107); Cholesterol 167 mg/dL (<200); Estimated GFR 43.96 (mL/min/1.73m2); Glucose 114 mg/dL (74-106); HDL Cholesterol 50 mg/dL (>or=50); Potassium 3.8 mmol/L (3.5-5.1); Sodium 139 mmol/L (136-145); TSH 3.98 uIU/mL (0.36-3.74); Total Protein 7.7 g/dL (6.4-8.2); Triglyceride 120 mg/dL (<150)
== END 2024-11-16 11:50 | disposition home or self-care (01) ==
PROVIDERS: Visit Provider Nurse Practitioner Family
DX: I10 Essential (primary) hypertension (principal); E78.5 Hyperlipidemia, unspecified; Z68.42 Body mass index [BMI] 45.0-49.9, adult
CPT/HCPCS: 36415; 80053; 80061; 83036; 84439; 84443

== ENCOUNTER 2025-01-30 07:48 | Outpatient (CLI) | payer MEDICARE, SELFPAY | END 2025-01-30 07:49 | disposition home or self-care (01) | LOC: DI.CARD 07:49 | PROVIDERS: Visit Provider Registered Nurse | DX: I47.9 Paroxysmal tachycardia, unspecified (principal); I48.0 Paroxysmal atrial fibrillation | CPT/HCPCS: 93010 ==

== ENCOUNTER 2025-02-22 07:44 | Outpatient (CLI) | payer MEDICARE, SELFPAY ==
--- NOTE | 2025-02-22 07:30 | RT.EKG_ITS ---
APPROVED REPORT Exam: Resting ECG Reason for Exam: PAF Patient Location: O HR:62 bpm ECG Measurements Heart Rate 62 AXIS [place] 212 P [id number] QRSd 96 QRS 0 QT 422 T 41 QTc 429 Conclusion Atrial-paced complexes...other complexes also detected Borderline prolonged KY interval...KY >212, V-rate 50- 90 Low voltage, precordial leads...precordial leads <1.0mV Probable left ventricular hypertrophy...multiple LVH criteria
== END 2025-02-22 07:45 | disposition home or self-care (01) ==
LOC: DI.CARD 07:44
PROVIDERS: Visit Provider Registered Nurse
DX: I48.0 Paroxysmal atrial fibrillation (principal); I47.9 Paroxysmal tachycardia, unspecified; I51.7 Cardiomegaly
CPT/HCPCS: 93010

== ENCOUNTER → 2025-02-22 08:33 | Outpatient (BNVA) | payer MEDICARE, SELFPAY | PROVIDERS: Visit Provider Registered Nurse | DX: I48.0 Paroxysmal atrial fibrillation (principal); Z95.0 Presence of cardiac pacemaker; Z79.01 Long term (current) use of anticoagulants; Z79.899 Other long term (current) drug therapy; I47.9 Paroxysmal tachycardia, unspecified | CPT/HCPCS: 99215; 93005 ==